=== PATIENT | male | born 1930 | race Caucasian/White ===

== ENCOUNTER 2017-10-06 10:09 | Emergency (ER) | payer MEDICARE, OTHER ==
[2017-10-06 10:49] LABS: #Eosinphils 0.2 thou/uL (0.0-0.7); #Lymphocytes 1.4 thou/uL (1.20-3.40); #Monocytes 0.7 thou/uL (0.11-0.59); #Neutrophils 6.6 thou/uL (1.40-6.50); %Basophils 0.2 % (0.0-1.0); %Eosinophils 2.2 % (0.0-10.0); %Lymphocytes 15.5 % (21.0-51.0); %Monocytes 7.9 % (0.0-10.0); %Neutrophils 74.3 % (42.0-75.0); Hemoglobin 13.1 g/dL (14.0-18.0); Mean Corpuscular HGB CONC 33.2 g/dL (32.0-36.0); Mean Corpuscular Hemoglobin 32.8 pg (27.0-31.0); Mean Corpuscular Volume 98.8 fl (80.0-94.0); Mean Platelet Volume 7.1 fL (7.4-10.4); Platelet Count 175 thou/uL (130-400); White Blood Cell (WBC) Count 8.9 thou/uL (4.8-10.8)
[2017-10-06 10:54] LABS: INR-International Normal Ratio 1.7; PTT 38.4 SEC (22.9-36.1); Prothrombin Time 20.5 SEC (12.0-14.7)
[2017-10-06 11:15] LABS: ALT (SGPT) 16 U/L (8-55); AST (SGOT) 17 U/L (5-34); Alkaline Phosphatase 72 U/L (40-150); Anion Gap 11 mmol/L (10-20); BUN (Urea Nitrogen) 23 mg/dL (8.4-25.7); Bilirubin, Total 2.3 mg/dL (0.2-1.2); Calc. Creatinine Clearance 0 mL/min (70-130); Calcium 9.2 mg/dL (7.8-10.44); Carbon Dioxide 27 mmol/L (23-31); Chloride 101 mmol/L (98-107); Estimated GFR-MDRD 64; Globulin 3.2 g/dL (2.4-3.5); Glucose 117 mg/dL (83-110); Potassium 3.8 mmol/L (3.5-5.1); Protein, Total 7.2 g/dL (5.8-8.1); Sodium 135 mmol/L (136-145)
--- NOTE | 2017-10-06 12:22 | ULT ---
RIGHT LOWER EXTREMITY VENOUS DUPLEX SONOGRAM: History Right leg pain and edema. FINDINGS: The right common femoral vein and greater saphenous junction were evaluated along with the femoral, d eep femoral, popliteal, and posterior tibial veins. There is good color and spectral Doppler flow, c ompression, and augmentation. IMPRESSION: No sonographic evidence of deep vein thrombosis within the right lower extremity. POS: KENNETH
[2017-10-06] MEDS ORDERED: ISOVUE-370 76%-LOCM 1 ML ONE (12:43)
--- NOTE | 2017-10-06 13:30 | CT ---
RIGHT LOWER EXTREMITY CT SCAN WITH IV CONTRAST: HISTORY: An 87-year-old male with hematoma. Patient on Xarelto with right lower extremity pain, swelling, and bruising since injuring 6 days ago. There is an approximately 3 x 5 x 10 cm diameter higher attenuation mass involving the fascia o verlying the right anteromedial knee compartment. 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 There is associated subcutaneous emp hysema and nonspecific fat stranding. There is some fatty change noted in the medial gastrocnemius m uscle possibly related to old muscle injury. There is a somewhat curvilinear higher attenuation focu s within this lesion that is of uncertain etiology or significance and could conceivably represent s ome type of a small foreign body. 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 There are some arterio vascular calcific changes involving the visualized popliteal artery and trifurcation regions without evidence for significant high-grade stenosis or occlusion. No evidence for fracture or dislocation o r other significant acute osseous abnormality. IMPRESSION: Large abnormal blood collection/hematoma involving the fascia overlying the anteromedial right upper knee compartment with an appearance that certainly could be consistent with a Allen Gin lesion. Within this lesion, there is a somewhat curvilinear area of focal increased near-contrast density of uncertain etiology or significance. Conceivably, this could represent a small foreign body. Other findings as above. POS: JUAN
[2017-10-06] MEDS ORDERED: HYDROcodone/Acetaminophen 10/325 mg Tablet ONE (14:29)
[2017-10-06] MEDS ORDERED: Ondansetron HCl/PF 4 MG/2 ML Vial ONE (15:57)
== END 2017-10-06 16:27 | disposition home or self-care (01) ==
LOC: ERS 10:09
DX: S70.11XA Contusion of right thigh, initial encounter (principal); S90.31XA Contusion of right foot, initial encounter; S90.121A Contusion of right lesser toe(s) without damage to nail, initial encounter; S90.01XA Contusion of right ankle, initial encounter; S80.11XA Contusion of right lower leg, initial encounter; I25.10 Atherosclerotic heart disease of native coronary artery without angina pectoris; I10 Essential (primary) hypertension; I48.91 Unspecified atrial fibrillation; Z79.01 Long term (current) use of anticoagulants; Z79.52 Long term (current) use of systemic steroids; Z79.51 Long term (current) use of inhaled steroids; Z79.899 Other long term (current) drug therapy; X58.XXXA Exposure to other specified factors, initial encounter
CPT/HCPCS: 80053; 85025; 85610; 85730; J2270; J2405